=== PATIENT | male | born 1985 | race Two or more races ===

== ENCOUNTER 2020-10-23 18:28 | Emergency (ER) | payer OTHER ==
[~2020-10-23] VITALS: Ht 175.3 cm; Wt 140.6 kg
== END 2020-10-23 21:53 | disposition home or self-care (01) ==
LOC: ER 18:28
DX: S86.911A Strain of unspecified muscle(s) and tendon(s) at lower leg level, right leg, initial encounter (principal)

== ENCOUNTER 2021-09-20 03:08 | Emergency (ER) | payer OTHER ==
[~2021-09-20] VITALS: Ht 175.3 cm; Wt 156.5 kg
[2021-09-20] MEDS ORDERED: KETO10TA2 PO (05:53)
[2021-09-20] MEDS ORDERED: ORPHENADRINE C100 MG PO (05:53)
== END 2021-09-20 06:15 ==
LOC: ER 03:08
DX: S70.02XA Contusion of left hip, initial encounter (principal); S80.01XA Contusion of right knee, initial encounter; S50.12XA Contusion of left forearm, initial encounter; V48.9XXA Unspecified car occupant injured in noncollision transport accident in traffic accident, initial encounter; Y93.9 Activity, unspecified; Y92.413 State road as the place of occurrence of the external cause; Y99.9 Unspecified external cause status

== ENCOUNTER 2023-03-25 05:38 | Emergency (ER) | payer OTHER ==
[~2023-03-25] VITALS: Ht 175.3 cm; Wt 172.4 kg
[~2023-03-25 05:38] MED LIST: KETO10TA2 PO; ORPHENADRINE C100 MG PO
[2023-03-25 07:57] LABS: HEMATOCRIT 44.8 % (39.0-48.0); HEMOGLOBIN 15.6 g/dL (13-16.00); MEAN CELL VOLUME 94.5 fL (80.0-100.00); MEAN CORPUSCULAR HEMOGLOBIN 32.8 pg (27.00-32.0); MEAN CORPUSCULAR HGB CONC 34.7 g/dl (32.0-36.0); PLATELET COUNT 171 K/uL (150-450); RED BLOOD COUNT 4.74 M/uL (4.00-6.00); RED CELL DISTRIBUTION WIDTH 14.4 % (11.5-14.5)
[2023-03-25] MEDS ORDERED: OSEL75CA PO (09:03)
[2023-03-25] MEDS ORDERED: TUSNEL LIQUID178 ML PO (09:03)
== END 2023-03-25 09:26 | disposition home or self-care (01) ==
LOC: ER 05:39
PROVIDERS: General Practice
DX: J10.1 Influenza due to other identified influenza virus with other respiratory manifestations (principal)